=== PATIENT | male | born 1985 | race Caucasian/White ===

== ENCOUNTER 2018-10-03 18:09 | Emergency (ER) | payer MEDICAID ==
[~2018-10-03] VITALS: Ht 167.6 cm; Wt 76.0 kg
[2018-10-03 20:15] VITALS: BP 110/74
== END 2018-10-04 | disposition left against medical advice (07) ==
LOC: ER 18:09
DX: M54.5 Low back pain (principal)
CPT/HCPCS: 99281

== ENCOUNTER 2020-06-02 17:00 | Emergency (ER) | payer MEDICAID ==
[~2020-06-02] VITALS: Ht 167.6 cm; Wt 73.0 kg
[2020-06-02] MEDS ORDERED: HYDROCODONE/ACETAMINOPHEN 5/325MG TABLET PO ONE ×2 (17:15→18:30)
[2020-06-02] MEDS ORDERED: AMOXICILLIN 500 MG CAPSULE PO ONE (17:15)
[2020-06-02] MEDS ORDERED: TETANUS, DIPHTHERIA, PERTUSSIS VAC/PF 0.5ML (>7YR OLD) IM ONE (17:15)
[2020-06-02 18:25] VITALS: BP 122/84
== END 2020-06-02 18:54 | disposition home or self-care (01) ==
LOC: ER 17:00
DX: S06.9X9A Unspecified intracranial injury with loss of consciousness of unspecified duration, initial encounter (principal); Z90.49 Acquired absence of other specified parts of digestive tract; W18.30XA Fall on same level, unspecified, initial encounter; Y93.89 Activity, other specified; Y92.89 Other specified places as the place of occurrence of the external cause; Y99.8 Other external cause status
CPT/HCPCS: 70486; 90471; 90715; 99285

== ENCOUNTER 2020-11-09 11:47 | Emergency (ER) | payer SELFPAY ==
[~2020-11-09] VITALS: Ht 172.7 cm; Wt 66.0 kg
[2020-11-09] MEDS ORDERED: KETOROLAC 30MG/ML VIAL IM ONE (13:00)
[2020-11-09] MEDS ORDERED: ACET-2708 MT (15:11)
[2020-11-09] MEDS ORDERED: IBUP-2029 MT (15:11)
[2020-11-09 16:00] VITALS: BP 115/72
== END 2020-11-09 16:00 | disposition home or self-care (01) ==
LOC: ER 13:10
DX: M54.5 Low back pain (principal); M79.18 Myalgia, other site
CPT/HCPCS: 72100; 96372; 99283; J1885

== ENCOUNTER 2021-03-17 15:49 | Emergency (ER) | payer SELFPAY ==
[~2021-03-17 15:49] MED LIST: ACET-2708 MT; IBUP-2029 MT
== END 2021-03-17 16:39 | disposition left against medical advice (07) ==
LOC: ER 15:58
DX: Z53.21 Procedure and treatment not carried out due to patient leaving prior to being seen by health care provider (principal)

== ENCOUNTER 2021-03-22 21:24 | Emergency (ER) | payer SELFPAY ==
[~2021-03-22] VITALS: Ht 172.7 cm; Wt 68.0 kg
[2021-03-22 21:37] VITALS: BP 158/98
== END 2021-03-22 23:45 | disposition left against medical advice (07) ==
LOC: ER 21:24
DX: U07.1 COVID-19 (principal); R03.0 Elevated blood-pressure reading, without diagnosis of hypertension
CPT/HCPCS: 99283

== ENCOUNTER 2022-02-18 07:52 | Emergency (ER) | payer MEDICAID, OTHER ==
[~2022-02-18] VITALS: Ht 172.7 cm; Wt 78.0 kg
[2022-02-18 08:04] VITALS: BP 118/69
[2022-02-18] MEDS ORDERED: CEFTRIAXONE SODIUM 250 MG/VIAL IM ONE (08:45)
[2022-02-18] MEDS ORDERED: AZITHROMYCIN 500 MG TABLET PO ONE (08:45)
[2022-02-19 06:10] LABS: HIV SCREEN 4G Non Reactive (Non Reactive)
[2022-02-20 04:07] LABS: NEISSERIA GONORRHOEAE NAA Negative (Negative)
== END 2022-02-18 09:32 | disposition home or self-care (01) ==
LOC: ER 07:52
DX: N34.2 Other urethritis (principal)
CPT/HCPCS: 87389; 87491; 87591; 96372; 99283; J0696